=== PATIENT | female | born 1950 | race Caucasian/White ===

== ENCOUNTER 2016-09-20 23:14 | Emergency (ER) | payer OTHER, MEDICARE ==
[2016-09-21 00:51] VITALS: BP 189/69
[2016-09-21] MEDS ORDERED: FAMOTIDINE 20 MG TABLET PO ONE (02:00)
[2016-09-21] MEDS ORDERED: DIPH/PERTUSS(ACELL)/TETANUS VAC/PF 0.5 ML SYR (>=10YO) IM ONE (02:00)
[2016-09-21] MEDS ORDERED: DIPHENHYDRAMINE HCL 50 MG CAPSULE PO ONE (02:00)
--- NOTE | 2016-09-21 02:04 | ER Document Report ---
ED Skin Rash/Insect Bite/Abscs - General Chief Complaint: Insect Bite Stated Complaint: POSSIBLE SPIDER BITE RIGHT LEG Mode of Arrival: Ambulatory Information source: Patient Notes: Patient is a 66-year-old female who presents to the ER today for and bite to her right lower leg that [place]. Patient states that she went to pull her pants leg down and that is when she felt something bite her. She did not see what bit her as she even took off her pants and shook them out. She over the period of a few hours has developed a large red unique on her right calf and spreading redness down to the foot. She is not up-to-date on her tetanus. She also admits to headache. She denies any numbness, tingling or sharp pains. TRAVEL OUTSIDE OF THE [place] IN LAST 30 DAYS: No - Related Data Allergies/Adverse Reactions: cortisone Allergy (Verified 09/21/16 01:10) Iodinated Contrast Media - Oral and Allergy (Verified 09/21/16 01:10) Penicillins Allergy (Verified 09/21/16 01:10) Sulfa (Sulfonamide Antibiotics) Allergy (Verified 09/21/16 01:10) Past Medical History - General Information source: Patient - Social History Smoking Status: Unknown if Ever Smoked Family History: Reviewed & Not Pertinent Patient has suicidal ideation: No Patient has homicidal ideation: No Renal/ Medical History: Denies: Hx Peritoneal Dialysis Review of Systems - Review of Systems Constitutional: No symptoms reported EENT: No symptoms reported Cardiovascular: No symptoms reported Respiratory: No symptoms reported Gastrointestinal: No symptoms reported Genitourinary: No symptoms reported Female Genitourinary: No symptoms reported Musculoskeletal: No symptoms reported Skin: See HPI Hematologic/Lymphatic: No symptoms reported Neurological/Psychological: No symptoms reported Physical Exam - Vital signs Vitals: Temp Pulse Resp BP Pulse Ox 98.9 F 73 18 189/69 H 98 09/21/16 00:49 09/21/16 00:49 09/21/16 00:49 09/21/16 00:49 09/21/16 00:49 - Notes Notes: PHYSICAL EXAMINATION: GENERAL: Well-appearing and in no acute distress. HEAD: Atraumatic, normocephalic. EYES: Pupils equal round and reactive to light, extraocular movements intact, sclera anicteric, conjunctiva are normal. NECK: Normal range of motion, supple without lymphadenopathy LUNGS: CTAB and equal. No wheezes rales or rhonchi. HEART: Regular rate and rhythm without murmurs EXTREMITIES: Normal range of motion, no pitting edema. No cyanosis. NEUROLOGICAL: Cranial nerves grossly intact. Normal sensory/motor exams. PSYCH: Normal mood, normal affect. SKIN: Warm, Dry, normal turgor, approximately 3 cm in diameter of erythema surrounding a small puncture/bite unique to right posterior calf, slight erythema extending down to patient's ankle, nontender to palpation, and slightly warm to the touch, no fluctuance or induration Course - Vital Signs Vital signs: Temp Pulse Resp BP Pulse Ox 98.9 F 73 18 189/69 H 98 09/21/16 00:49 09/21/16 00:49 09/21/16 00:49 09/21/16 00:49 09/21/16 00:49 Discharge - Discharge Clinical Impression: Insect bite of right lower leg with local reaction Qualifiers: Encounter type: initial encounter Qualified Code(s): S80.861A - Insect bite ( nonvenomous), right lower leg, initial encounter Condition: Stable Disposition: HOME, SELF-CARE Instructions: Insect Bites ([facility]) Additional Instructions: Please continue to take Benadryl every 4 hours over the next 2 days, it will help the reaction to the bite along with the prednisone that I have prescribed you. Return immediately for any new or worsening symptoms, such as fever, pus draining from the bite, increased pain. Follow up with primary care provider, call tomorrow to make followup appointment. Prescriptions: Prednisone [Deltasone 20 mg Tablet] 3 tab PO DAILY 5 Days
[2016-09-21] MEDS ORDERED: PREDNISONE 20 MG TABLET PO ONE (02:07)
== END 2016-09-21 02:50 | disposition home or self-care (01) ==
LOC: ER 23:14
DX: S80.861A Insect bite (nonvenomous), right lower leg, initial encounter (principal); W57.XXXA Bitten or stung by nonvenomous insect and other nonvenomous arthropods, initial encounter; Y93.89 Activity, other specified; Y92.832 Beach as the place of occurrence of the external cause; R51 Headache; Z88.8 Allergy status to other drugs, medicaments and biological substances; Z91.041 Radiographic dye allergy status; Z88.0 Allergy status to penicillin; Z88.2 Allergy status to sulfonamides
CPT/HCPCS: 99281; 90471; 90715; J7512